=== PATIENT | female | born 1960 | race Two or more races ===

== ENCOUNTER 2023-04-17 05:32 | Day surgery (SDC) | payer OTHER ==
[2023-04-13 16:12] VITALS: BMI 24.5
[2023-04-17 12:53] VITALS: TEMP 97.9
[2023-04-17 13:27] VITALS: RESP 16
[2023-04-17 13:30] VITALS: BP 118/65; PULSE 76
== END 2023-04-17 13:30 | disposition home or self-care (01) ==
LOC: JASU-ENDO 05:32
PROVIDERS: ATTEND Internal Medicine Gastroenterology
PROC: 0DB78ZX Excision of Stomach, Pylorus, Via Natural or Artificial Opening Endoscopic, Diagnostic (ICD-10-PCS; 2023-04-17)
PROC: 0DB68ZX Excision of Stomach, Via Natural or Artificial Opening Endoscopic, Diagnostic (ICD-10-PCS; 2023-04-17)
PROC: 0DB98ZX Excision of Duodenum, Via Natural or Artificial Opening Endoscopic, Diagnostic (ICD-10-PCS; principal; 2023-04-17 11:45)
DX: K29.50 Unspecified chronic gastritis without bleeding (principal); K44.9 Diaphragmatic hernia without obstruction or gangrene

== ENCOUNTER 2023-04-24 05:15 | Day surgery (SDC) | payer OTHER ==
[2023-04-18 15:15] VITALS: BMI 25.4
[2023-04-24 08:44] VITALS: TEMP 98.7
[2023-04-24 09:29] VITALS: RESP 20
[2023-04-24 09:31] VITALS: BP 105/56; PULSE 65
== END 2023-04-24 09:40 | disposition home or self-care (01) ==
LOC: JASU-ENDO 05:15
PROVIDERS: ATTEND Internal Medicine Gastroenterology
PROC: 0DBP8ZX Excision of Rectum, Via Natural or Artificial Opening Endoscopic, Diagnostic (ICD-10-PCS; 2023-04-24)
PROC: 0DBP8ZX Excision of Rectum, Via Natural or Artificial Opening Endoscopic, Diagnostic (ICD-10-PCS; 2023-04-24)
PROC: 0DBH8ZX Excision of Cecum, Via Natural or Artificial Opening Endoscopic, Diagnostic (ICD-10-PCS; principal; 2023-04-24 08:00)
DX: Z12.11 Encounter for screening for malignant neoplasm of colon (principal); K63.5 Polyp of colon; K62.1 Rectal polyp; K57.30 Diverticulosis of large intestine without perforation or abscess without bleeding; K64.8 Other hemorrhoids
CPT/HCPCS: 88305-TC